=== PATIENT | female | born 1955 | race Caucasian/White ===

== ENCOUNTER → 2018-04-03 08:42 | Outpatient (CLI) | payer OTHER, SELFPAY ==
[2018-04-03 10:59] LABS: Anion Gap 6 (5-15); BUN 22 mg/dL (7-18); BUN/Creat Ratio 25.1 RATIO (10-20); Calcium,Total 8.9 mg/dL (8.5-10.1); Chloride 106 mmol/L (98-107); Creatinine, Serum 0.88 mg/dL (0.55-1.02); EST Glomerular Filtration Rate 69 mL/min (>60); Est Glom Filt Rate - Afr Amer 84 mL/min (>60); Glucose 90 mg/dL (74-106); Potassium 3.7 mmol/L (3.5-5.1); Sodium Level 141 mmol/L (136-145)
== END ==
PROVIDERS: Family Provider Family Medicine; PCP Family Medicine; Visit Provider Family Medicine
DX: I10 Essential (primary) hypertension (principal)
CPT/HCPCS: 36415; 80048

== ENCOUNTER → 2018-10-03 08:45 | Outpatient (CLI) | payer OTHER, SELFPAY ==
[2018-10-03 10:10] LABS: Absolute Lymphocyte Count 1.33 X10^3/ul (0.83-4.51); Absolute Neutrophil Count 2.6 X10^3/uL (2.0-7.7); Basophil# 0.04 X10^3/uL; Basophil% 0.9 % (0-1); Eosinophils% 2.3 % (0-5); Hemoglobin 13.9 g/dl (12.0-15.0); Lymphocyte # 1.33 X10^3/ul (4.0); Lymphocyte % 30.2 % (19-41); Mean Corp Hgb Conc 32.3 g/gl (32-36); Mean Corpuscular Hgb 29.2 pg (27.0-32.0); Mean Corpuscular Volume 90.3 fL (81-99); Mean Platelet Vol. 11.6 fl (6.2-12.0); Monocyte% 6.8 % (0-10); Neutrophil # 2.62 X10^3/uL (2.7-7.7); Neutrophil % 59.6 % (47-70); Platelet Count 178 K/mm3 (150-450); RBC Distribution Width CV 13.8 % (11.6-14.6); Red Blood Count 4.76 M/mm3 (4.2-5.4); White Blood Count 4.4 K/mm3 (4.4-11.0)
[2018-10-03 10:13] LABS: POSITIVE COUNT NO; POSITIVE DIFFERENTIAL NO; POSITIVE MORPHOLOGY NO
[2018-10-03 10:33] LABS: ALB/GLOB Ratio 1.3 RATIO (0.9-2.4); AST(SGOT) 27 U/L (15-37); Alanine Aminotransfer ALT/SGPT 35 U/L (13-56); Alkaline Phosphatase 72 U/L (45-117); Anion Gap 9 (5-15); BUN 24 mg/dL (7-18); BUN/Creat Ratio 26.4 RATIO (10-20); Calcium,Total 8.7 mg/dL (8.5-10.1); Chloride 105 mmol/L (98-107); Cholesterol 207 mg/dL (200); Creatinine, Serum 0.91 mg/dL (0.55-1.02); EST Glomerular Filtration Rate 67 mL/min (>60); Est Glom Filt Rate - Afr Amer 81 mL/min (>60); Glucose 87 mg/dL (74-106); High Density Lipoprotein 70 mg/dL; Potassium 4.4 mmol/L (3.5-5.1); Sodium Level 143 mmol/L (136-145); Triglycerides 74 mg/dL; Very Low Density Lipoprotein 15 mg/dL (5-40)
[2018-10-03 10:34] LABS: Vitamin D,25 Hydroxy 48.3 ng/mL (29.95-100.01)
--- OUTSIDE RECORDS SUMMARY | 2018-11-28 03:31 | XMS RPT_ITS ---
:1955 Author Organization OHIP Care Team Providers Name Role Phone Kriss Rai Attending Unavailable Kriss Rai Referring Unavailable Vivek Deras Primary Care Unavailable Vivek Deras Attending Unavailable Vivek Deras Primary Care Unavailable Vivek Deras Attending Unavailable Vivek Deras Primary Care Unavailable Vivek Deras Attending Unavailable PROBLEMS PROBLEMS DATE TYPE CONDITION / CODE ATTENDING STATUS SOURCE 10/21/2018 Unknown Z12.4 - Encounter Michelet Rai for screening for [facility] malignant neoplasm [facility] of cervix / Repository Z12.4(ICD-10) 10/21/2018 Unknown Z01.419 - Encounter Michelet Rai for gynecological [facility] (general) (routine) Repository without abnormal findings / Z01.419(ICD-10) 11/11/2017 Unknown I10 - Essential Vivek Deras Active Srikanth (primary) [facility] hypertension / Hospital I10(ICD-10) Repository PROCEDURES PROCEDURES No Procedure Records FoundRESULTS RESULTS CBC W/DIFF, AUTOMATED Collected: 10/03/2018 Status: F Source: SRIKANTH 8:47 AM [facility] REPOSITORY TYPE CODE TESTS RESULT OUT OF RANGE REFERENCE UNITS LAB L100.1000 4.4-11.0 K/mm3 Normal WBC 4.4 LAB L100.1200 4.2-5.4 M/mm3 Normal RBC 4.76 LAB L100.1300 12.0-15.0 g/dl Normal HGB 13.9 LAB L100.1400 37-47 % Normal HCT 43.0 LAB L100.1500 81-99 fL Normal MCV 90.3 LAB L100.1600 27.0-32.0 pg Normal MCH 29.2 LAB L100.1700 32-36 g/gl Normal MCHC 32.3 LAB L100.1810 11.6-14.6 % Normal RDW CV 13.8 LAB L100.1820 35.1-43.9 fl High RDW SD 46.0 LAB L100.1900 150-450 K/mm3 Normal PLT 178 LAB L100.2000 6.2-12.0 fl Normal MPV 11.6 LAB L100.2100 47-70 % Normal NEUT% 59.6 LAB L100.2200 19-41 % Normal LY% 30.2 LAB L100.2300 0-10 % Normal MONO% 6.8 LAB L100.2400 0-5 % Normal EO% 2.3 LAB L100.2500 0-1 % Normal BASO% 0.9 LAB L100.2550 0.0-0.9 % Normal IM GRAN % 0.200 Result Comment: IG% - Immature Granulocytes (promyelocytes, myelocytes and metamyelocytes) > 1% indicates that a LEFT SHIFT is Present. LAB L100.2620 2.0-7.7 X10 3/uL Normal Absolute Neut 2.6 LAB L100.2720 0.83-4.51 X10 3/ul Normal Absolute Lymph 1.33 Performed By: #### L100.0100, L500.4050, L500.4100, L506.1000 #### [facility] [address] [place], [address] COMPREHENSIVE METABOLIC Collected: 10/03/2018 Status: F Source: SRIKANTH [place] 8:47 AM [facility] REPOSITORY TYPE CODE TESTS RESULT OUT OF RANGE REFERENCE UNITS LAB L501.0100 74-106 mg/dL Normal GLU 87 Result Comment: Please note revised GLUCOSE reference range effective 2017. LAB L501.1000 7-18 mg/dL High BUN 24 LAB L501.1100 0.55-1.02 mg/dL Normal CREAT,SERUM 0.91 Result Comment: The validity of the calculated GFR AND GFRAA in patients over 70 years has not been determined. Clinical correlation is essential. LAB L501.1110 >60 mL/min Normal EST GFR 67 Result Comment: Non- GFR Calc LAB L501.1115 >60 mL/min Normal EST GFR - AA 81 Result Comment: GFR Calc LAB L501.1300 10-20 RATIO High BUN/CRE 26.4 LAB L501.1500 6.4-8.2 g/dL T Normal PROT 7.0 LAB L501.1800 3.2-5.0 g/dL Normal ALB 4.0 LAB L501.1950 2.2-4.2 g/dL Normal GLOB 3.0 LAB L501.2000 0.9-2.4 RATIO Normal A/G 1.3 LAB L501.2200 8.5-10.1 mg/dL CA Normal 8.7 LAB L501.4100 15-37 U/L Normal AST 27 LAB L501.4305 45-117 U/L Normal ALK P 72 LAB L501.4405 13-56 U/L Normal ALT 35 LAB L501.4600 0.20-1.00 mg/dL T Normal BILI 0.60 LAB L501.5300 136-145 mmol/L NA Normal 143 LAB L501.5600 3.5-5.1 mmol/L K Normal 4.4 LAB L501.5900 98-107 mmol/L CL Normal 105 LAB L501.6100 21.0-32.0 mmol/L Normal CO2 29.0 LAB L501.6200 5-15 Normal GAP 9 Performed By: #### L100.0100, L500.4050, L500.4100, L506.1000 #### [facility] [address] [place], [address] LIPID PROFILE Collected: 10/03/2018 Status: F Source: SRIKANTH 8:47 AM [facility] REPOSITORY TYPE CODE TESTS RESULT OUT OF RANGE REFERENCE UNITS LAB L501.4900 200 mg/dL High CHOL 207 Result Comment: <200 mg/dL Desirable 200-240 mg/dL Borderline >240 mg/dL High Risk LAB L501.5000 mg/dL Normal TRIG 74 Result Comment: The drugs N-Acetylcysteine and Metamizole may falsely depress this assay. Serum Triglycerides Reference Interval Normal <150 mg/dL Borderline high 150 - 199 mg/dL High 200 - 499 mg/dL Very High > or = 500 mg/dL LAB L501.6400 mg/dL Normal HDL 70 Result Comment: The drugs N-Acetylcysteine and Metamizole may falsely depress this assay. Reference Range HDL <40 mg/dL Low HDL Cholesterol HDL >or= 60 mg/dL High HDL Cholesterol LAB L501.6500 0-130 mg/dL Normal LDL 122 LAB L501.6600 5-40 mg/dL Normal VLDL 15 Performed By: #### L100.0100, L500.4050, L500.4100, L506.1000 #### [facility] [address] [place], [address] VITAMIN D,25 HYDROXY Collected: 10/03/2018 Status: F Source: SRIKANTH 8:47 AM [facility] REPOSITORY TYPE CODE TESTS RESULT OUT OF RANGE REFERENCE UNITS LAB L506.1000 29.95-100.01 ng/mL Normal Vitamin D 48.3 25-OH Result Comment: Vitamin D 25(OH) Status Range Deficiency <20 ng/mL (50nmol/L) Insuffciency 20 - 30 ng/mL (50 - 75 nmol/L) Sufficiency 30 - 100 ng/mL (75 - 250 nmol/L) Toxicity >100 ng/mL (>250 nmol/L) Performed By: #### L100.0100, L500.4050, L500.4100, L506.1000 #### [facility] [address] [place], [address] BASIC METABOLIC Collected: 04/03/2018 Status: F Source: SRIKANTH PROFILE (BMP) 8:43 AM [facility] REPOSITORY Order Comment: Order Date: 04/01/18 Order Info: 0667-1 - BMP TYPE CODE TESTS RESULT OUT OF RANGE REFERENCE UNITS LAB L501.0100 74-106 mg/dL Normal GLU 90 Result Comment: Please note revised GLUCOSE reference range effective 2017. LAB L501.1000 7-18 mg/dL High BUN 22 LAB L501.1100 0.55-1.02 mg/dL Normal CREAT,SERUM 0.88 Result Comment: The validity of the calculated GFR AND GFRAA in patients over 70 years has not been determined. Clinical correlation is essential. LAB L501.1110 >60 mL/min Normal EST GFR 69 Result Comment: Non- GFR Calc LAB L501.1115 >60 mL/min Normal EST GFR - AA 84 Result Comment: GFR Calc LAB L501.1300 10-20 RATIO High BUN/CRE 25.1 LAB L501.2200 8.5-10.1 mg/dL CA Normal 8.9 LAB L501.5300 136-145 mmol/L NA Normal 141 LAB L501.5600 3.5-5.1 mmol/L K Normal 3.7 LAB L501.5900 98-107 mmol/L CL Normal 106 LAB L501.6100 21.0-32.0 mmol/L Normal CO2 29.0 LAB L501.6200 5-15 Normal GAP 6 Performed By: #### L500.2500 #### [facility] [address] [place], [place] [address]all [facility]. [place], [place], [address] CBC W/DIFF, AUTOMATED Collected: 11/08/2017 Status: F Source: SRIKANTH 3:07 PM [facility] REPOSITORY TYPE CODE TESTS RESULT OUT OF RANGE REFERENCE UNITS LAB L100.1000 4.4-11.0 K/mm3 Normal WBC 4.4 LAB L100.1200 4.2-5.4 M/mm3 Normal RBC 4.64 LAB L100.1300 12.0-15.0 g/dl Normal HGB 13.8 LAB L100.1400 37-47 % Normal HCT 43.0 LAB L100.1500 81-99 fL Normal MCV 92.7 LAB L100.1600 27.0-32.0 pg Normal MCH 29.7 LAB L100.1700 32-36 g/gl Normal MCHC 32.1 LAB L100.1810 11.6-14.6 % Normal RDW CV 13.3 LAB L100.1820 35.1-43.9 fl High RDW SD 44.9 LAB L100.1900 150-450 K/mm3 Normal PLT 161 LAB L100.2000 6.2-12.0 fl High MPV 12.6 LAB L100.2100 47-70 % Normal NEUT% 53.4 LAB L100.2200 19-41 % Normal LY% 32.6 LAB L100.2300 0-10 % High MONO% 11.0 LAB L100.2400 0-5 % Normal EO% 2.3 LAB L100.2500 0-1 % Normal BASO% 0.5 LAB L100.2550 0.0-0.9 % Normal IM GRAN % 0.200 Result Comment: IG% - Immature Granulocytes (promyelocytes, myelocytes and metamyelocytes) > 1% indicates that a LEFT SHIFT is Present. LAB L100.2620 2.0-7.7 X10 3/uL Normal Absolute Neut 2.3 LAB L100.2720 0.83-4.51 X10 3/ul Normal Absolute Lymph 1.43 Performed By: #### L100.0100 #### [facility] [address] [place], [place], [address] BASIC METABOLIC Collected: 11/08/2017 Status: F Source: [place] PROFILE ([facility]) 3:07 PM [facility] REPOSITORY TYPE CODE TESTS RESULT OUT OF RANGE REFERENCE UNITS LAB L501.0100 70-110 mg/dL Normal GLU 93 LAB L501.1000 7-18 mg/dL High BUN 21 LAB L501.1100 0.55-1.02 mg/dL Normal 0.90 CREAT,SERUM Result Comment: The validity of the calculated GFR AND GFRAA in patients over 70 years has not been determined. Clinical correlation is essential. LAB L501.1110 >60 mL/min Normal EST GFR 68 Result Comment: Non- GFR Calc LAB L501.1115 >60 mL/min Normal EST GFR - AA 82 Result Comment: GFR Calc LAB L501.1300 10-20 RATIO High BUN/CRE 23.3 LAB L501.2200 8.5-10.1 mg/dL CA Normal 9.2 LAB L501.5300 136-145 mmol/L NA Normal 145 LAB L501.5600 3.5-5.1 mmol/L K Normal 3.8 LAB L501.5900 98-107 mmol/L High CL 109 LAB L501.6100 21.0-32.0 mmol/L Normal CO2 28.0 LAB L501.6200 5-15 Normal GAP 8 Performed By: #### L500.2500, L500.4100 #### [facility] [address] [place], [address] LIPID PROFILE Collected: 11/08/2017 Status: F Source: [place] 3:07 PM [facility] REPOSITORY TYPE CODE TESTS RESULT OUT OF RANGE REFERENCE UNITS LAB L501.4900 200 mg/dL Normal CHOL 173 Result Comment: <200 mg/dL Desirable 200-240 mg/dL Borderline >240 mg/dL High Risk LAB L501.5000 mg/dL Normal TRIG 143 Result Comment: The drugs N-Acetylcysteine and Metamizole may falsely depress this assay. Serum Triglycerides Reference Interval Normal <150 mg/dL Borderline high 150 - 199 mg/dL High 200 - 499 mg/dL Very High > or = 500 mg/dL LAB L501.6400 mg/dL Normal HDL 54 Result Comment: The drugs N-Acetylcysteine and Metamizole may falsely depress this assay. Reference Range HDL <40 mg/dL Low HDL Cholesterol HDL >or= 60 mg/dL High HDL Cholesterol LAB L501.6500 0-130 mg/dL Normal LDL 90 LAB L501.6600 5-40 mg/dL Normal VLDL 29 Performed By: #### L500.2500, L500.4100 #### [facility] [address] [place], [place], [address] ALLERGIES ALLERGIES DATE TYPE / CODE NAME / CODE REACTION SEVERITY SOURCE 04/05/2014 Drug No Known Unknown [facility] Allergy/4160 Allergies/F00 [facility] [address](SNOMED 1247289(RXNOR Repository CT) M) ENCOUNTERS ENCOUNTERS ADMIT/DISCHARGE ACCOUNT ADMITTING ENCOUNTER LOCATION SOURCE NUMBER CLASS 10/21/2018 [id number] Ambulatory [address] ing:LABSPEC Repository 10/03/2018 [id number] Ambulatory Srikanth Srikanth 6 [facility] ing:MFPLAB Repository 04/03/2018 [id number] Ambulatory Srikanth [place] 7 [facility] ing:MFPLAB Repository 11/08/2017 [id number] Ambulatory Srikanth Srikanth 4 [facility] ing:MFPLAB Repository PAYERS PAYERS ENCOUNTER GUARANTOR PAYER SUBSCRIBER SOURCE 10/21/2018 JOSE S [id number] Primary JOSE S HUFFDOB: Srikanth E LETY [id number] Number: [facility] [address]Ljw: [id number] Repository Date:[id number] [address] () [address] [place] [address]YD: 10/21/2018 Secondary NOT GIVENUNK [place] Insurance:SELF PAY [facility] Number: Effective Repository Date:2018-10-21 10/03/2018 [id number] Jose HuffDOB: [place] [address] Insurance:[facility] [id number] Number: [facility] [id number]: [phone]) [id number] Repository [phone] () Date:[id number] [address] [place] [address]GB: 10/03/2018 Secondary NOT GIVENUNK Srikanth Insurance:SELF PAY [facility] Number: Effective Repository Date:2018-10-03 04/03/2018 Jose [id number] Jose HuffDOB: Srikanth [address] Way[address] Insurance:[facility] [id number] [facility] Number: [facility] [address]Lac: [phone]) [id number] Repository [phone] (HP) Date:5437-80-78AO [address] [place] [address]AB: 04/03/2018 Secondary NOT GIVENUNK Srikanth Insurance:SELF PAY [facility]: Effective Repository Date:2018-04-03 11/08/2017 [id number] Jose ChenB: Srikanth Don [facility] [id number] [facility] Number: [facility] [id number]: [phone]) [id number] Repository [phone] () Date:[id number] [address] [address]GO: 11/08/2017 Secondary NOT GIVENUNK [place] Insurance:SELF PAY [facility] Number: Effective Repository Date:2017-11-08
== END ==
PROVIDERS: Family Provider Family Medicine; PCP Family Medicine; Visit Provider Family Medicine
DX: I10 Essential (primary) hypertension (principal); E78.5 Hyperlipidemia, unspecified; E55.9 Vitamin D deficiency, unspecified
CPT/HCPCS: 36415; 80053; 80061; 82306; 85025

== ENCOUNTER → 2018-10-21 12:40 | Outpatient (CLI) | payer OTHER, SELFPAY ==
[2014-04-05 09:13] VITALS: BMI 35.2
[2018-10-23 15:19] LABS: HPV Reflexed? NOT INDICATED
--- OUTSIDE RECORDS SUMMARY | 2019-01-22 22:45 | XMS RPT_ITS ---
:1955 Author Organization OHIP Care Team Providers Name Role Phone Kriss Rai Attending Unavailable Kriss Rai Referring Unavailable Vivek Deras Primary Care Unavailable Vivek Deras Attending Unavailable Vivek Deras Primary Care Unavailable Vivek Deras Attending Unavailable Vivek Deras Primary Care Unavailable PROBLEMS PROBLEMS DATE TYPE CONDITION / CODE ATTENDING STATUS SOURCE 10/21/2018 Unknown Z12.4 - Encounter Michelet Rai for screening for [facility] malignant neoplasm [facility] of cervix / Repository Z12.4(ICD-10) 10/21/2018 Unknown Z01.419 - Encounter Michelet Rai for gynecological [facility] (general) (routine) Repository without abnormal findings / Z01.419(ICD-10) PROCEDURES PROCEDURES No Procedure Records FoundRESULTS RESULTS PAP I-G W/RFX HRHPV Collected: 10/21/2018 Status: F Source: SRIKANTH 8:30 AM [facility] REPOSITORY Order Comment: CYTOLOGY INFORMATION: - CLINICAL INFORMATION: POSTMENOPAUSAL - DATE LMP/MENOPAUSE: MENOPAUSE - COLLECTION VIAL: Thin Prep Vial - LEGAL OFFICE ADMINISTRATOR SOURCE: CERVICAL/VAGINAL - COLLECTION TECHNIQUE: BRUSH/SPATULA Specimen Comment: [id number] Specimen Comment: Source.............Cervix;Vagina Specimen Comment: Other..............Post Menopausal Specimen Comment: No. of containers..01 ThinPrep Vial TYPE CODE TESTS RESULT OUT OF RANGE REFERENCE UNITS LAB L7400.0800 . Normal DIAGN Comment Result Comment: NEGATIVE FOR INTRAEPITHELIAL LESION AND MALIGNANCY. LAB L7400.0900 . Normal ADEQ Comment Result Comment: Satisfactory for evaluation. Endocervical component may not be distinguished in cases of atrophy. LAB L7400.1400 . Normal PERFORM Comment Result Comment: [facility] ([facility]) LAB L7400.2575 . Normal TEST METHOD Comment Result Comment: This liquid based ThinPrep(R) pap test was screened with the use of an image guided system. LAB L7400.2600 . Normal . COMM LAB L7400.2700 . Normal PAPSMR Comment Result Comment: The Pap smear is a screening test designed to aid in the detection of premalignant and malignant conditions of the uterine cervix. It is not a diagnostic procedure and should not be used as the sole means of detecting cervical cancer. Both false-positive and false-negative reports do occur. LAB L7400.2800 . Normal HPV RFLX Comment Result Comment: The HPV DNA reflex criteria were not met with this specimen result therefore, no HPV testing was performed. Performed at: [facility] [address] [id number] Light Oil Operator: Heather Archer MD, Phone: [phone] Performed By: #### L7400.0350 #### [facility] (refer to report for specific site) refer to report for address and phone number CBC W/DIFF, AUTOMATED Collected: 10/03/2018 Status: F Source: [place] 8:47 AM [facility] [place] CODE TESTS RESULT OUT OF [...] By: #### L100.0100, L500.4050, L500.4100, L506.1000 #### [facility] [address] [place], [address] COMPREHENSIVE METABOLIC Collected: 10/03/2018 Status: F Source: [facility] 8:47 AM [facility] [place] TYPE CODE TESTS RESULT OUT OF [...] By: #### L100.0100, L500.4050, L500.4100, L506.1000 #### [facility] [address] [place], [address] LIPID PROFILE Collected: 10/03/2018 Status: F Source: [place] 8:47 AM [facility] [place] TYPE CODE TESTS RESULT OUT OF [...] By: #### L100.0100, L500.4050, L500.4100, L506.1000 #### [facility] [address] [place], [address] VITAMIN D,25 HYDROXY Collected: 10/03/2018 Status: F Source: [place] 8:47 AM [facility] [place] TYPE CODE TESTS RESULT OUT OF RANGE REFERENCE UNITS LAB L506.1000 29.95-100.01 ng/mL Normal Vitamin D 48.3 25-OH Result Comment: Vitamin D 25(OH) Status Range Deficiency <20 ng/mL (50nmol/L) Insuffciency 20 - 30 ng/mL (50 - 75 nmol/L) Sufficiency 30 - 100 ng/mL (75 - 250 nmol/L) Toxicity >100 ng/mL (>250 nmol/L) Performed By: #### L100.0100, L500.4050, L500.4100, L506.1000 #### [facility] [address] [place], [address] BASIC METABOLIC Collected: 04/03/2018 Status: F Source: [place] PROFILE (BMP) 8:43 AM [facility] [place] Order Comment: Order Date: 04/01/18 Order [...] GAP 6 Performed By: #### L500.2500 #### [facility] [address] [place], [address] ALLERGIES ALLERGIES DATE TYPE / CODE NAME / CODE REACTION SEVERITY SOURCE 04/05/2014 Drug No Known Unknown [facility] Allergy/4160 Allergies/F00 [facility] [address](SNOMED 1337020(RXNOR Repository CT) M) ENCOUNTERS ENCOUNTERS ADMIT/DISCHARGE ACCOUNT ADMITTING ENCOUNTER LOCATION SOURCE NUMBER CLASS 10/21/[id number] ing:LABSPEC Repository 10/03/[id number] ing:MFPLAB Repository 04/03/[id number] ing:MFPLAB Repository PAYERS PAYERS ENCOUNTER GUARANTOR PAYER SUBSCRIBER SOURCE 10/21/2018 JOSE S [id number] Primary JOSE S HUFFDOB: [place] E LETY Insurance:[employer] [id number] [address]Uvp: [id number] Repository Date:[id number], [place] [address]ZW: 10/21/2018 Secondary NOT GIVENUNK Srikanth Insurance:SELF PAY [facility] Number: Effective Repository Date:2018-10-21 10/03/2018 [facility] [id number] Jose HumelvaDOB: [place] Lety Don Insurance:[facility] [id number] CAREPolicy Number: Hospital [address]Mye: 330 [id number] Repository [phone] (HP) Date:2464-05-45AP [address] [address]NO: 10/03/2018 Secondary NOT GIVENUNK Srikanth Insurance:SELF PAY [facility] Number: Effective Repository Date:2018-10-03 04/03/2018 [facility] [id number] Jose HarmanDOB: Srikanth Lety Don Insurance:[facility] [id number] [place] CAREPolicy Number: Hospital [id number]: 330 [id number] Repository [phone] (HP) Date:0126-10-83XS [address] [address]TW: 04/03/2018 Secondary NOT GIVENUNK [place] Insurance:SELF PAY [facility] Number: Effective Repository Date:2018-04-03
== END ==
PROVIDERS: Family Provider Family Medicine; PCP Family Medicine; Referring Provider Nurse Practitioner Adult Health; Visit Provider Nurse Practitioner Adult Health
DX: Z01.419 Encounter for gynecological examination (general) (routine) without abnormal findings (principal)
CPT/HCPCS: 88175; G0145

== ENCOUNTER → 2018-12-23 09:24 | Outpatient (CLI) | payer BC, SELFPAY ==
--- NOTE | 2018-12-23 09:28 | BI_ITS ---
MAMMOGRAPHY - BILATERAL SCREENING REASON FOR EXAM: Female, 63 years old. Routine annual screening examination. PERTINENT HISTORY: Sister with breast cancer. TECHNIQUE: Digital bilateral breast alida (3D mammographic acquisition) in the CC and MLO projections. 2-D mediolateral oblique (MLO) and craniocaudad (CC) views of both breasts were obtained. CAD: Full Field Digital Mammography with Computer Added Detection was performed. COMPARISON: Comparison is made with prior examination dated May 05, 2014. FINDINGS: Breast Composition: There are scattered areas of fibroglandular density. There is a 6.7 mm x 8.3 mm well-defined nodule in the upper lateral portion of the right breast. This is essentially unchanged and may represent a small cyst. Prior ultrasound demonstrated 3 small cysts at that site. Stable small bilateral axillary lymph nodes. No other significant abnormalities are identified. There has been no significant change since the prior study. BI/SCREENING MAMM (CAD), BILAT IMPRESSION: Stable bilateral screening mammogram. Yearly follow-up mammogram recommended. (A) ASSESSMENT CATEGORY: BIRADS Category 2: Benign. A letter regarding these results will be sent to the patient by the facility within 30 days. Approximately 10% of breast cancers are not detected by mammography. A normal mammogram should not delay biopsy of a clinically suspicious abnormality. [id number] Electronically Signed: Jax Franco MD at 10:58 EST , Service support ,
--- NOTE | 2018-12-23 09:30 | BD_ITS ---
STUDY: DUAL ENERGY X-RAY ABSORPTIOMETRY / DXA REASON FOR EXAM: Female, 63 years old. The patient is postmenopausal. Loss of height. TECHNIQUE: Bone Mineral Density (BMD) measurements of lumbar spine and bilateral hips were obtained. COMPARISON: Comparison is made with prior study dated May 12, 2014. FINDINGS: Lumbar Spine (L1-L4): g/cm2 (1.049) / T-score (-1.3) / Z-score (0.1) Findings are suggestive of osteopenia with a low fracture risk. Left Femur Total: g/cm2 (0.919) / T-score (-0.7) / Z-score (0.4) Left Femoral Neck: g/cm2 (0.823) / T-score (-1.5) / Z-score (-0.2) Right Femur Total: g/cm2 (0.803) / T-score (-1.6) / Z-score (-0.6) Right Femoral Neck: g/cm2 (0.844) / T-score (-1.4) / Z-score (0.0) The T-Scores on the most recent prior examination were: Lumbar Spine (L1-L4): There has been worsening of bone density since the previous examination. Left Femur Total: which represents a worsening of 7.3%. Right Femur Total: which represents a worsening of 15.1%. BD/Dexa Bone Density Study IMPRESSION: The patient is considered osteopenic as outlined below according to World Isaiah Organization (WHO) criteria with a moderate fracture risk. There has been worsening of bone density since the previous examination. Reference Information: The T-score is the number of standard deviations above or below the standard which is normal for young adults at their peak bone mineral density. The World Health Organization (WHO) interprets the T-scores as follows: Above -1 Normal bone density Between -1 and -2.5 Osteopenia Equal to / or below -2.5 Osteoporosis As a practical clinical guideline, osteopenia may be graded as follows: Mild -1 through -1.5 Moderate -1.6 through -2.0 Severe -2.1 through -2.4 The Z-score is the number of standard deviations above or below age-matched controls. A Z-score of less than -1.5 would be considered abnormal. References: 1. NIH Osteoporosis and Related Bone Diseases http://www.osteo.org 2. International Society for Clinical Densitometry http://www.iscd.org 3. National Osteoporosis Foundation http://www.nof.org Electronically Signed: Jax Franco MD at 13:55 EST , Service support ,
== END ==
PROVIDERS: Family Provider Family Medicine; PCP Family Medicine; Referring Provider Nurse Practitioner Adult Health; Visit Provider Nurse Practitioner Adult Health
DX: Z78.0 Asymptomatic menopausal state (principal); Z12.31 Encounter for screening mammogram for malignant neoplasm of breast; Z80.3 Family history of malignant neoplasm of breast
CPT/HCPCS: 77063; 77067; 77080

== ENCOUNTER → 2020-08-10 09:41 | Outpatient (CLI) | payer BC, SELFPAY ==
[2014-04-05 09:13] VITALS: BMI 35.2
[2020-08-10 12:46] LABS: Anion Gap 3 (5-15); BUN 18 mg/dL (7-18); Calcium,Total 8.9 mg/dL (8.5-10.1); Chloride 105 mmol/L (98-107); Cholesterol 207 mg/dL (200); EST Glomerular Filtration Rate 67 mL/min (>60); Est Glom Filt Rate - Afr Amer 81 mL/min (>60); Glucose 102 mg/dL (74-106); High Density Lipoprotein 64 mg/dL; Potassium 3.8 mmol/L (3.5-5.1); Sodium Level 139 mmol/L (136-145); Triglycerides 120 mg/dL; Very Low Density Lipoprotein 24 mg/dL (5-40)
== END ==
PROVIDERS: PCP Family Medicine; Referring Provider Family Medicine; Visit Provider Family Medicine
DX: E78.5 Hyperlipidemia, unspecified (principal)
CPT/HCPCS: 36415; 80048; 80061

== ENCOUNTER → 2021-08-10 09:09 | Outpatient (CLI) | payer MEDICARE, SELFPAY ==
[2021-08-10 10:55] LABS: Anion Gap 7 (5-15); BUN 22 mg/dL (7-18); BUN/Creat Ratio 22.1 RATIO (10-20); Calcium,Total 9.2 mg/dL (8.5-10.1); Chloride 105 mmol/L (98-107); Cholesterol 231 mg/dL (200); Creatinine, Serum 0.99 mg/dL (0.55-1.02); EST Glomerular Filtration Rate 60 mL/min (>60); Est Glom Filt Rate - Afr Amer 72 mL/min (>60); Glucose 106 mg/dL (74-106); High Density Lipoprotein 46 mg/dL; Potassium 4.1 mmol/L (3.5-5.1); Sodium Level 141 mmol/L (136-145); Triglycerides 227 mg/dL; Very Low Density Lipoprotein 45 mg/dL (5-40)
== END ==
PROVIDERS: PCP Family Medicine; Referring Provider Family Medicine; Visit Provider Family Medicine
DX: I10 Essential (primary) hypertension (principal)
CPT/HCPCS: 36415; 80048; 80061

== ENCOUNTER 2022-02-07 08:40 | Outpatient (CLI) | payer MEDICARE, SELFPAY ==
[2022-02-07 10:22] LABS: Anion Gap 5 (5-15); BUN 29 mg/dL (7-18); BUN/Creat Ratio 20.9 RATIO (10-20); Calcium,Total 9.4 mg/dL (8.5-10.1); Chloride 105 mmol/L (98-107); Cholesterol 189 mg/dL (200); Creatinine, Serum 1.39 mg/dL (0.55-1.02); EST Glomerular Filtration Rate 40 mL/min (>60); Est Glom Filt Rate - Afr Amer 49 mL/min (>60); Glucose 122 mg/dL (74-106); High Density Lipoprotein 42 mg/dL; Potassium 4.1 mmol/L (3.5-5.1); Sodium Level 138 mmol/L (136-145); Triglycerides 124 mg/dL; Very Low Density Lipoprotein 25 mg/dL (5-40)
== END 2022-02-07 23:59 | disposition home or self-care (01) ==
LOC: MFPLAB 08:42
PROVIDERS: PCP Family Medicine; Referring Provider Family Medicine; Visit Provider Family Medicine
DX: I10 Essential (primary) hypertension (principal)
CPT/HCPCS: 36415; 80048; 80061

== ENCOUNTER → 2022-08-06 | Outpatient (CLI) | payer MEDICARE, SELFPAY ==
[2022-08-06 11:07] LABS: Anion Gap 8 (5-15); BUN 30 mg/dL (7-18); BUN/Creat Ratio 23.1 RATIO (10-20); Calcium,Total 9.5 mg/dL (8.5-10.1); Chloride 105 mmol/L (98-107); Cholesterol 204 mg/dL (200); EST Glomerular Filtration Rate 44 mL/min (>60); Est Glom Filt Rate - Afr Amer 53 mL/min (>60); Glucose 109 mg/dL (74-106); High Density Lipoprotein 45 mg/dL; Potassium 3.9 mmol/L (3.5-5.1); Sodium Level 140 mmol/L (136-145); Triglycerides 203 mg/dL; Very Low Density Lipoprotein 41 mg/dL (5-40)
== END | disposition home or self-care (01) ==
LOC: MFPLAB 08:32
PROVIDERS: PCP Family Medicine; Visit Provider Family Medicine
DX: I10 Essential (primary) hypertension (principal)
CPT/HCPCS: 36415; 80048; 80061

== ENCOUNTER → 2023-02-04 | Outpatient (CLI) | payer MEDICARE, SELFPAY ==
[2023-02-04 12:15] LABS: Anion Gap 6 (5-15); BUN 39 mg/dL (7-18); Calcium,Total 9.7 mg/dL (8.5-10.1); Chloride 102 mmol/L (98-107); Cholesterol 204 mg/dL (200); EST Glomerular Filtration Rate 37 mL/min (>60); Est Glom Filt Rate - Afr Amer 45 mL/min (>60); Glucose 114 mg/dL (74-106); High Density Lipoprotein 50 mg/dL; Potassium 3.7 mmol/L (3.5-5.1); Sodium Level 136 mmol/L (136-145); Triglycerides 207 mg/dL; Very Low Density Lipoprotein 41 mg/dL (5-40)
== END | disposition home or self-care (01) ==
LOC: MFPLAB 08:25
PROVIDERS: PCP Family Medicine; Visit Provider Family Medicine
DX: I10 Essential (primary) hypertension (principal)
CPT/HCPCS: 36415; 80048; 80061

== ENCOUNTER → 2023-08-05 | Outpatient (CLI) | payer MEDICARE, SELFPAY ==
[2023-08-05 10:23] LABS: Anion Gap 6 (5-15); BUN 31 mg/dL (7-18); BUN/Creat Ratio 24.6 RATIO (10-20); Calcium,Total 9.6 mg/dL (8.5-10.1); Chloride 102 mmol/L (98-107); Cholesterol 205 mg/dL (200); Creatinine, Serum 1.26 mg/dL (0.55-1.02); EST Glomerular Filtration Rate 45 mL/min (>60); Est Glom Filt Rate - Afr Amer 54 mL/min (>60); Glucose 122 mg/dL (74-106); High Density Lipoprotein 53 mg/dL; Potassium 3.7 mmol/L (3.5-5.1); Sodium Level 137 mmol/L (136-145); Triglycerides 162 mg/dL; Very Low Density Lipoprotein 32 mg/dL (5-40)
== END | disposition home or self-care (01) ==
LOC: MFPLAB 08:30
PROVIDERS: PCP Family Medicine; Visit Provider Family Medicine
DX: I10 Essential (primary) hypertension (principal)
CPT/HCPCS: 36415; 80048; 80061

== ENCOUNTER → 2023-09-05 | Outpatient (CLI) | payer MEDICARE, SELFPAY ==
--- NOTE | 2023-09-05 10:37 | BI_ITS ---
MAMMOGRAPHY - BILATERAL SCREENING REASON FOR EXAM: Female, 68 years old. Routine annual screening examination. PERTINENT HISTORY: Sister with breast cancer. TECHNIQUE: Digital bilateral breast mao (3D mammographic acquisition) in the CC and MLO projections. 2-D mediolateral oblique (MLO) and craniocaudad (CC) views of both breasts were obtained. CAD: Full Field Digital Mammography with Computer Added Detection was performed. COMPARISON: Comparison is made with prior examination dated December 23, 2018 and May 12, 2014. FINDINGS: Breast Composition: There are scattered areas of fibroglandular density. There are no dominant masses or suspicious calcifications. Slight decrease in size of the well-defined nodule in the upper lateral portion of the right breast. It presently measures 4 mm. Stable small benign-appearing bilateral axillary lymph nodes. No other significant abnormalities are identified. There has been no significant change since the prior study. BI/SCRN MAMM (CAD)W/MAO BILAT IMPRESSION: Stable bilateral screening mammogram. Yearly follow-up mammogram recommended. (A) ASSESSMENT CATEGORY: BIRADS Category 2: Benign. A letter regarding these results will be sent to the patient by the facility within 30 days. Approximately 10% of breast cancers are not detected by mammography. A normal mammogram should not delay biopsy of a clinically suspicious abnormality. [id number] Electronically Signed: Jax Franco MD at 12:31 EDT ,
--- NOTE | 2023-09-05 10:53 | BD_ITS ---
STUDY: DUAL ENERGY X-RAY ABSORPTIOMETRY / DXA REASON FOR EXAM: Female, 68 years old. Z780 TECHNIQUE: Bone Mineral Density (BMD) measurements of lumbar spine and bilateral hips were obtained. COMPARISON: Comparison is made with prior study dated December 23, 2018. FINDINGS: Lumbar Spine (L1-L4): g/cm2 (0.873) / T-score (-1.7) / Z-score (0.3) Findings are suggestive of osteopenia with a moderate fracture risk. Left Femur Total: g/cm2 (0.833) / T-score (-0.9) / Z-score (0.5) Left Femoral Neck: g/cm2 (0.678) / T-score (-1.5) / Z-score (0.1) Right Femur Total: g/cm2 (0.805) / T-score (-1.1) / Z-score (0.2) Right Femoral Neck: g/cm2 (0.640) / T-score (-1.9) / Z-score (-0.2) The T-Scores on the most recent prior examination were: Lumbar Spine (L1-L4): There has been worsening of bone density since the previous examination. Left Femur Total: which represents a worsening of 2.6%. Right Femur Total: which represents an improvement of 8.4%. BD/Dexa Bone Density Study IMPRESSION: The patient is considered osteopenic as outlined below according to World Isaiah Organization (WHO) criteria with a moderate fracture risk. There has been worsening of bone density since the previous examination. Reference Information: The T-score is the number of standard deviations above or below the standard which is normal for young adults at their peak bone mineral density. The World Health Organization (WHO) interprets the T-scores as follows: Above -1 Normal bone density Between -1 and -2.5 Osteopenia Equal to / or below -2.5 Osteoporosis As a practical clinical guideline, osteopenia may be graded as follows: Mild -1 through -1.5 Moderate -1.6 through -2.0 Severe -2.1 through -2.4 The Z-score is the number of standard deviations above or below age-matched controls. A Z-score of less than -1.5 would be considered abnormal. References: 1. NIH Osteoporosis and Related Bone Diseases www osteo.org 2. International Society for Clinical Densitometry www iscd.org 3. National Osteoporosis Foundation www nof.org Electronically Signed: Jax Franco MD at 13:24 EDT ,
== END | disposition home or self-care (01) ==
LOC: OPBI 10:35
PROVIDERS: PCP Family Medicine; Referring Provider Family Medicine; Visit Provider Family Medicine
DX: Z12.31 Encounter for screening mammogram for malignant neoplasm of breast (principal); Z78.0 Asymptomatic menopausal state
CPT/HCPCS: 77063; 77067; 77080

== ENCOUNTER → 2024-10-06 | Outpatient (CLI) | payer MEDICARE, SELFPAY ==
[2024-10-06 10:07] LABS: Anion Gap 4 (5-15); BUN 37 mg/dL (7-18); BUN/Creat Ratio 27.8 RATIO (10-20); Calcium,Total 9.7 mg/dL (8.5-10.1); Chloride 104 mmol/L (98-107); Cholesterol 205 mg/dL (200); Creatinine, Serum 1.33 mg/dL (0.55-1.02); EST Glomerular Filtration Rate 42 mL/min (>60); Est Glom Filt Rate - Afr Amer 51 mL/min (>60); Glucose 108 mg/dL (74-106); High Density Lipoprotein 52 mg/dL; Potassium 3.8 mmol/L (3.5-5.1); Sodium Level 136 mmol/L (136-145); Triglycerides 183 mg/dL; Very Low Density Lipoprotein 37 mg/dL (5-40)
[2024-10-06 10:41] LABS: Hemoglobin A1c 5.8 % (3.8-5.6)
== END | disposition home or self-care (01) ==
LOC: MFPLAB 08:09
PROVIDERS: PCP Family Medicine; Referring Provider Family Medicine; Visit Provider Family Medicine
DX: E78.5 Hyperlipidemia, unspecified (principal)
CPT/HCPCS: 36415; 80048; 80061; 83036

== ENCOUNTER → 2024-12-24 | Outpatient (CLI) | payer MEDICARE, SELFPAY ==
--- NOTE | 2024-12-24 10:41 | BI_ITS ---
PROCEDURE: SCRN MAMM (CAD)W/MAO BILAT REASON FOR EXAM: F, Age 69 y/o , , presents for annual screening mammogram. Family history of breast cancer in her sister at age 40. TECHNIQUE: Bilateral screening digital breast tomosynthesis with 2D and 3D images. Computer aided detection. COMPARISON: 09/05/2023, 12/23/2018 FINDINGS: There are scattered areas of fibroglandular density. No suspicious masses, areas of developing architectural distortion, or suspicious calcifications. BI/SCRN MAMM (CAD)W/MAO BILAT IMPRESSION: There is no mammographic evidence of malignancy in either breast. . BI-RADS 1: NEGATIVE. RECOMMEND ANNUAL MAMMOGRAPHIC SCREENING. Follow-up code: Routine Follow-up The patient will be notified of the results by letter. Reading Location: [facility]
== END | disposition home or self-care (01) ==
LOC: OPBI 10:40
PROVIDERS: PCP Family Medicine; Referring Provider Family Medicine; Visit Provider Family Medicine
DX: Z00.00 Encounter for general adult medical examination without abnormal findings (principal); Z12.31 Encounter for screening mammogram for malignant neoplasm of breast
CPT/HCPCS: 77063; 77067

== ENCOUNTER 2025-01-27 08:04 | Day surgery (SDC) | payer MEDICARE, SELFPAY ==
[2025-01-27] VITALS (9 sets, daily range): BP systolic 87–110; BP diastolic 62–72; PULSE 65–80; RESP 16–17; TEMP 36.1–36.7; O2SAT 92–99
--- NOTE | 2025-01-27 08:14 | PRE.ANES_ITS ---
ASA Classification* ASA Classification ASA Classification: 2 Assessment & Plan Anesthesia* Anesthesia Assessment Anesthesia Assessment: Discussed sedation and/or anesthesia options, risks, benefits, and alternatives with patient/parents/legal guardian/POA. Questions invited. The patient/parents/legal guardian/POA seems to understand and agrees to proceed with anesthesia plan. Reviewed the physical assessment, medical history, allergy history and patient home medications list prior to surgery/procedure/anesthetic and documented any changes. Performed airway and anesthesia risk assessments. Anesthesia Type Anesthesia Type: MAC Anesthesia Focused Assessment* Airway Assessment Mouth opens: >3 cm Mallampati Score: II Focused Labs Anesthesia Preop lab: CBC WBC 4.4 K/mm3 (4.4-11.0) 10/03/18 08:47 10/03/18 RBC 4.76 M/mm3 (4.2-5.4) 10/03/18 08:47 10/03/18 Hgb 13.9 g/dl (12.0-15.0) 10/03/18 08:47 10/03/18 Hct 43.0 % (37-47) 10/03/18 08:47 10/03/18 Plt Count 178 K/mm3 (150-450) 10/03/18 08:47 10/03/18 CHEMISTRY Potassium 3.8 mmol/L (3.5-5.1) 10/06/24 08:10 10/06/24 Sodium 136 mmol/L (136-145) 10/06/24 08:10 10/06/24 BUN 37 mg/dL (7-18) H 10/06/24 08:10 10/06/24 Creatinine 1.33 mg/dL (0.55-1.02) H 10/06/24 08:10 Glucose 108 mg/dL (74-106) H 10/06/24 08:10 10/06/24 COAG Pre-Assessment Diagnosis/Proposed Procedure Planned Operative Procedure(s): EGD, COLONOSCOPY Anesthesia History Anesthesia History - day care supervisor: Anesthesia History - day care supervisor Hx Hospitalization No 01/22/25 08:40 Any Problems With Anesthesia No 01/22/25 08:40 Cholinesterase deficiency No 01/22/25 08:40 You/Your Family Experience No 01/22/25 08:40 fever (hyperthermia) with Relationship Recent Exposure to Contagious No 12/09/23 11:16 Disease Does patient have nerve No 01/22/25 08:40 stimulator Patient instructed to have device shut off --Does patient have Pacemaker or ICD? When Was Last Pacemaker Check QUESTION #4 FULL TEXT: You/Your Family Experience fever (hyperthermia) with Anesthesia Last Oral Intake Last Oral intake: Last Oral Intake NPO since Meds taken in AM with sips of water? Meds patient instructed to take am of surgery PONV PONV - day care supervisor: PONV - day care supervisor Female Yes 01/22/25 08:40 HX of Motion Sickness Yes 01/22/25 08:40 HX of N/V After Surgery Yes 01/22/25 08:40 Non-Smoker Yes 01/22/25 08:40 Duration of Surgery greater No 01/22/25 08:40 than 60 minutes Number of Risk Factors 4 01/22/25 08:40 PONV Score Severe Risk 01/22/25 08:40 Height & Weight Height & Weight: Anesthesia: Height & Weight Height 5 ft 2 in 01/05/25 09:01 Respiratory Assessment Respiratory Assessment - day care supervisor: Respiratory Tract Infection Hx - day care supervisor Hx Respiratory Tract Infection No 01/22/25 08:40 STOP Sleep Apnea STOP Sleep Apnea - day care supervisor: STOP Sleep Apnea - day care supervisor Hx Hypertension Yes 01/22/25 08:40 Hx Sleep Apnea No 01/22/25 08:40 CPAP No 12/09/23 11:16 BIPAP No 12/09/23 11:16 Do you snore loudly (louder No 01/22/25 08:40 than talking or can be heard Do you often feel tired/ No 01/22/25 08:40 fatigued/ sleepy during daytime? Has anyone observed you stop No 01/22/25 08:40 breathing during sleep? STOP Results Negative 01/22/25 08:40 QUESTION #5 FULL TEXT : Do you snore loudly (louder than talking or can be heard through closed doors)? 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 Specify any problems Hx of Preganancy in last 3 No 01/22/25 08:40 Months Nurse Filling Out Transfusion VLEHMEDINA 01/22/25 08:40 & Questions: Date: 01/22/25 01/22/25 08:40 Time: 08:44 01/22/25 08:40 Patient unable to answer at this time (ie. confused, unrespo /Reproduction History /Reproductive History - day care supervisor: /Reproductive Hx- day care supervisor Hx Now No 01/22/25 08:40 Gestational Age (in weeks): EDC: Hx Hx Para Hx Section SAB No 01/22/25 08:40 [facility] Medical History Wears glasses Bladder disease High cholesterol Gastric reflux Non-smoker Cataract Constipation Diarrhea IBS (irritable bowel syndrome) Abdominal pain Hypertension Home Medications ?Medication ?Instructions ?Recorded ?Last Taken ?Type calcium 600 mg (as 1 tab PO DAILY 04/05/14 Unkn own History carbonate)-vitamin D3 20 mcg (800 unit) tablet (Caltrate with Vitamin D3) atorvastatin 20 mg tablet 20 mg PO DAILY 12/09/23 Unkn own History dicyclomine 20 mg tablet 20 mg PO BID 12/09/23 Unknow n History omeprazole 20 mg tablet,delayed 20 mg PO BID PRN 12/09 Unknown History release lisinopril 20 1 tab PO DAILY 01/22/25 Unkn own History mg-hydrochlorothiazide 25 mg tablet Allergy/AdvReac Type Severity Reaction Status Date / Time No Known Allergies Allergy Verified 01/22/25 09:42 Surgical History History of bilateral cataract extraction H/O tubal ligation Social History Smoking Status: Never smoker alcohol intake: never substance use type: does not use Review of Systems (Anesthesia) ROS Narrative System reviewed and no additional complaints, except as documented.
--- NOTE | 2025-01-27 09:04 | HP.PCM_ITS ---
History and Physical Date of Admission: 01/27/25 Date of Service: 01/05/25 MR#: [id number] Acct: [id number] Name: JOSE HARMAN Rep #: [id number] : 1955 Provider: Dr. Veena Cruz MD Age/Sex: 69/F Location: [facility] Status: Signed Intake Vital Signs 12/09/2411:17 01/05/2509:01 Height 5 ft 2 in 5 ft 2 in Weight: 176 lb BMI 32.1 BP 160/90 H Blood Pressure Location Rt brachial Position Sitting Respiration 18 Pulse 72 Pulse Source Monitor Temp 97.5 F L Temp Source Temporal Pulse Oximetry (%) 99 Oxygen Delivery Method room air Intake Visit Reasons: COLONOSCOPY Chief Complaint: colonoscopy Is patient in pain?: No Allergies No Known Allergies Allergy (Verified 01/05/25 09:02) Medications ?Medication ?Instructions ?Recorded ?Confirmed ?Type calcium 600 mg (as 04/05/14 01/05/25 History carbonate)-vitamin D3 20 mcg (800 unit) tablet (Caltrate with Vitamin D3) atorvastatin 20 mg tablet mg PO 12/09/23 01/05/25 History dicyclomine 20 mg tablet mg PO 12/09/23 01/05/25 History metoprolol tartrate 25 mg tablet mg PO 12/09/23 01/05/25 History omeprazole 20 mg tablet,delayed mg PO 12/09/23 01/05/25 History release sodium sul 1.479 gram-potas ch See Rx Instructions PO PER PKG DIR 01/05/25 01/05/25 Rx 0.188 gram-magnes sul 0.225 gram #1 pkg tablet (Sutab) Have you fallen in the past year?: No PFSH Medical History (Updated 01/06/25 @ 12:[address] Veena Cruz MD) Cataract Constipation Diarrhea IBS (irritable bowel syndrome) Abdominal pain Hypertension Surgical History (Updated 01/05/25 @ 09:00 by Raven Mak LPN) H/O tubal ligation Social History (Updated 01/05/25 @ 09:01 by Raven Mak LPN) Smoking Status: Former smoker alcohol intake: never substance use type: does not use HPI HPI HPI: 69-year-old female presents due to positive fit test. Patient had a colonoscopy greater than 10 years ago. Patient does have reflux not on any medication only gets it with certain foods. Patient denies any family history of colon cancer. Patient states she does have IBS and does go between constipation and diarrhea however if she takes her plexus she has bowel movements which are soft and every other day. Patient does have some crampy abdominal pain about 4 out of 7 days of the week. Patient is requesting Sutab for prep. Patient denies any nausea or vomiting/reflux. ROS General General: No weight change, appetite, fatigue, colon cancer, breast cancer or weakness HEENT HEENT: Yes eye surgery; No difficulty swallowing, eye injury, swollen glands or hoarseness Endo Endocrine: No thyroid disease, diabetes mellitus, thyroid cancer, Hair loss, heat intolerance or cold intolerance Skin Skin: No rash or changing moles Musc Musculoskeletal: Yes arthritis; No back problems, rheumatoid arthritis, gout or joint pain Cardio Cardiovascular: Yes high blood pressure; No murmur, pacemaker, heart disease, atrial fibrillation, heart attack, heart stent, palpitations, shortness of breat with exertion or chest pain Psych Psychiatric: No depression, anxiety or hearing voices Resp Respiratory: No shortness of breath, No sleep apnea, No cough, No COPD, No asthma, No emphysema and No wheezing Gastro Gastrointestinal: Yes abdominal pain, No nausea or vomiting, Yes diarrhea, Yes constipation, No blood in stool, No acid reflux, No hemorrhoids, No ulcers, No gallbladder problem and No black,tarry stools [place] Hematologic: No blood thinners, No blood disorders, No bleeding, No anemia and No blood clots Neuro Neurologic: No numbness, No tingling and No weakness Exam Const General: cooperative, healthy appearing, comfortable and no acute distress [facility] Head: normocephalic and atraumatic Neck Neck: supple Resp Effort & Inspection: normal respiratory effort Cardio Rate: regular rate GI Inspection: non-distended Palpation: soft and nontender Skin General: no rashes or lesions noted Neuro General: CN's II-XI intact bilaterally Extrem General: normal to inspection Psych Mental Status: mental status grossly normal Attitude: cooperative Assessment and Plan Assessment and Plan (1) Positive FIT (fecal immunochemical test): Status: Acute Medications: New sod sulf-pot chloride-mag sulf 1.479-0.188- 0.225 gram (Sutab) PO PER PKG DIR 1 pkg 0RF Plan I have discussed the above with the patient. I have offered the patient esophagogastroduodenoscopy and colonoscopy for ev aluation. I have explained the risks/benefits of the procedure and described the procedure. I have discussed the risks with the patient, including but not limited to: infection, bleeding, perforation of the GI tract requiring emergency surgery, inability to complete the procedure, injury to any internal organs, complications of anesthesia, etc. - the patient understands and agrees to proceed. I have answered all the patient's questions to the patient's satisfaction and the patient has no further questions. The patient has been given instructions for the colon cleansing preparation. 1 day of kenn, Cherylab prep. Veena Cruz M.D. Pager: [phone] [facility] [address] [place] [address], [address] [place] [id number] Office: [phone] Coding Level of Care Code Off vis,new,level 3 Diagnoses Positive FIT (fecal immunochemical test) R19.5 Clinical Quality Measures Falls Risk Screening/Assistive Devices Have you fallen in the past year?: No 01/06/25 1302 <Electronically signed by Venea Cruz MD> Date Veena Cruz MD
--- NOTE | 2025-01-27 09:30 | EGD_PTH ---
PATIENT: JOSE HARMAN LOC: EN U#:[id number] AGE/SX: 69/F ROOM: RE01/27/[address]: Dr. Veena Cruz MD : 1955 BED: DIS: 01/27/2025 SPEC #: [id number] RECD: 01/27/25 13:23 STATUS: MJ RENona #: [id number] NIVIA: 01/27/25 09:[address]: Veena Cruz DEPT: SURGICAL PATHOLOGY RECD BY: Yao Martin ENTERED: 01/27/25 13:23 SP TYPE: EGD BIOPSY KENNETH DR: Dr. Vivek Deras MD Tissues: A - COLON BIOPSY Procedures: Immunohistochemical Stains Surgery Specimen Level IV HEADER OPERATION: Colonoscopy, EGD with biopsy PRE-OP DIAGNOSIS: Positive fecal immunochemical test TISSUE SUBMITTED: A- Pre-pylorus biopsy MICROSCOPIC DIAGNOSIS A. STOMACH, PRE-PYLORUS, BIOPSY: - CHRONIC GASTRITIS. - IHC NEGATIVE FOR H PYLORI ORGANISMS. MICROSCOPIC DESCRIPTION Slides are reviewed. These tests were developed and their performance characteristics determined by [facility]. They may not have been cleared or approved by the U.S. Food and Drug Administration. The FDA has determined that such clearance or approval is not necessary. The above immunohistochemical/dualISH markers are ordered and reviewed by the Pathologist. GROSS DESCRIPTION A. Received in fixative is one container labeled with the patient's name and designated Pre-pylorus biopsy. The specimen consists of one irregular fragment of light umaña soft tissue that measures 0.7 x 0.3 x 0.2 cm. The specimen is totally submitted in one cassette. 01/27/2025 CPT:31193,77613
--- NOTE | 2025-01-27 10:20 | PCM.POST.ANE ---
Anesthesia: Postop Eval I Current Vital Signs Temperature: 97 F Pulse Rate: 77 Blood Pressure: 91/65 Respiratory Rate: 17 Pulse Ox: 98 Oxygen Delivery Method: Room Air Assessment Airway patent: Yes Spontaneous unlabored respirations: Yes Mental status: Asleep nausea: No Vomiting: No Anesthesia Complication: No Fluid Hydration Crystalloid volume administer (ml): 60 Total IV fluid infused: 60 Progress Note Anesthesia document: Postop Eval 1 completed: Yes
--- NOTE | 2025-01-27 10:27 | OP.CCLET_ITS ---
01/27/2025 Vivek Deras MD [address] [phone] Re : Upper GI endoscopy procedure for Yeny Spangler Dear Dr. Deras This procedure was performed on Monday, January 27, 2025. My impressions and recommendations are as follows: Impressions : - Z-line regular, 35 cm from the incisors. - Small hiatal hernia. - Erythematous mucosa in the prepyloric region of the stomach. Biopsied. 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 - No gross lesions in the entire esophagus. Recommendations : - Await pathology results. - Return to my office in 2 weeks. - Continue present medications. My findings are described in the full procedure note, which is enclosed. If I can be of further assistance, please feel free to contact me at Doctor phone number(s): , Work: . Sincerely, MD Veena Ramachandran MD 01/27/2025 10:27:27 AM This report has been signed electronically.
--- NOTE | 2025-01-27 10:27 | OP.EGD_ITS ---
Patient Name: Yeny Spangler Procedure Date: 01/27/2025 9:42 AM Date of : 1955 Age: 69 Procedure: Upper GI endoscopy Indications: +FIT Providers: Veena Cruz MD Referring MD: Vivek Deras MD Medicines: Monitored Anesthesia Care Patient Profile: This is a 69 year old female. Complications: No immediate complications. Procedure: Pre-Anesthesia Assessment: - Prior to the procedure, a History and Physical was performed, and patient medications and allergies were reviewed. The patient's tolerance of previous anesthesia was also reviewed. The risks and benefits of the procedure and the sedation options and risks were discussed with the patient. All questions were answered, and informed consent was obtained. Prior Anticoagulants: The patient has taken no anticoagulant or antiplatelet agents. ASA Grade Assessment: Per anesthesia. After reviewing the risks and benefits, the patient was deemed in satisfactory condition to undergo the procedure. After obtaining informed consent, the endoscope was passed under direct vision. Throughout the procedure, the patient's blood pressure, pulse, and oxygen saturations were monitored continuously. The Colonoscope was introduced through the mouth, and advanced to the duodenal bulb. The upper GI endoscopy was accomplished without difficulty. The patient tolerated the procedure well. Scope In: 9:49:35 AM Scope Out: 9:55:02 AM Total Procedure Duration Time 0 hours 5 minutes 27 seconds Findings: The Z-line was regular and was found 35 cm from the incisors. A small hiatal hernia was present. Moderately erythematous mucosa without bleeding was found in the prepyloric region of the stomach. Biopsies were taken with a cold forceps for histology. Biopsies were taken with a cold forceps for Helicobacter pylori cultures. A [Acquired/Congenital] moderate stenosis was found in the first portion of the duodenum and was non-traversed. No gross lesions were noted in the entire esophagus. Impression: - Z-line regular, 35 cm from the incisors. - Small hiatal hernia. - Erythematous mucosa in the prepyloric region of the stomach. Biopsied. 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 - No gross lesions in the entire esophagus. Recommendation: - Await pathology results. - Return to my office in 2 weeks. - Continue present medications. Procedure Code(s): --- Professional --- 98309, Esophagogastroduodenoscopy, flexible, transoral; with biopsy, single or multiple Diagnosis Code(s): --- Professional --- K44.9, Diaphragmatic hernia without obstruction or gangrene K31.89, Other diseases of stomach and duodenum CPT copyright 2021 [employer] [place] [employer]. All rights reserved. The codes documented in this report are preliminary and upon tobacco drying machine operator review may be revised to meet current compliance requirements. MD Veena Ramachandran MD 01/27/2025 10:27:27 AM This report has been signed electronically. Number of Addenda: 0 Note Initiated On: 01/27/2025 9:42 AM
--- NOTE | 2025-01-27 10:31 | OP.CCLET_ITS ---
01/27/2025 Vivek Deras MD [address] [phone] Re : Colonoscopy procedure for Yeny Spangler Dear Dr. Deras This procedure was performed on Monday, January 27, 2025. My impressions and recommendations are as follows: Impressions : - The entire examined colon is normal on direct and retroflexion views. - No specimens collected. Recommendations : - Discharge patient to home. - Resume previous diet. - Continue present medications. - Repeat colonoscopy in 10 years for screening purposes. - depending on overall health at time of possible repeat My findings are described in the full procedure note, which is enclosed. If I can be of further assistance, please feel free to contact me at Doctor phone number(s): , Work: . Sincerely, MD Veena Ramachandran MD 01/27/2025 10:30:59 AM This report has been signed electronically.
--- NOTE | 2025-01-27 10:31 | OP.COLON_ITS ---
Patient Name: Yeny Spangler Procedure Date: 01/27/2025 9:55 AM Date of : 1955 Age: 69 Procedure: Colonoscopy Indications: Positive fecal immunochemical test Providers: Veena Cruz MD Referring MD: Vivek Deras MD Medicines: Monitored Anesthesia Care Patient Profile: This is a 69 year old female. Last Colonoscopy: more than 10 years ago. Complications: No immediate complications. Procedure: Pre-Anesthesia Assessment: - Prior to the procedure, a History and Physical was performed, and patient medications and allergies were reviewed. The patient's tolerance of previous anesthesia was also reviewed. The risks and benefits of the procedure and the sedation options and risks were discussed with the patient. All questions were answered, and informed consent was obtained. Prior Anticoagulants: The patient has taken no anticoagulant or antiplatelet agents. ASA Grade Assessment: Per anesthesia. After reviewing the risks and benefits, the patient was deemed in satisfactory condition to undergo the procedure. After I obtained informed consent, the scope was passed under direct vision. Throughout the procedure, the patient's blood pressure, pulse, and oxygen saturations were monitored continuously. The Colonoscope was introduced through the anus and advanced to the cecum, identified by the appendiceal orifice, ileocecal valve and palpation. The colonoscopy was performed without difficulty. The patient tolerated the procedure well. The quality of the bowel preparation was good. Scope In: 9:56:29 AM Scope Withdrawal Time 0 hours 9 minutes 15 seconds Scope Out: 10:12:13 AM Total Procedure Duration Time 0 hours 15 minutes 44 seconds Findings: The perianal and digital rectal examinations were normal. The entire examined colon appeared normal on direct and retroflexion views. Impression: - The entire examined colon is normal on direct and retroflexion views. - No specimens collected. Recommendation: - Discharge patient to home. - Resume previous diet. - Continue present medications. - Repeat colonoscopy in 10 years for screening purposes. - depending on overall health at time of possible repeat Procedure Code(s): --- Professional --- 44125, Colonoscopy, flexible; diagnostic, including collection of specimen(s) by brushing or washing, when performed (separate procedure) Diagnosis Code(s): --- Professional --- R19.5, Other fecal abnormalities CPT copyright 2021 [employer]. All rights reserved. The codes documented in this report are preliminary and upon federal court of appeals law clerk review may be revised to meet current compliance requirements. MD Veena Ramachandran MD 01/27/2025 10:30:59 AM This report has been signed electronically. Number of Addenda: 0 Note Initiated On: 01/27/2025 9:55 AM
--- NOTE | 2025-01-27 10:34 | PCM.POSTANE2 ---
Anesthesia Postop Eval I Sum Postop Eval Completion status Anesthesia document: Postop Eval 1 completed: Yes Anesthesia Postop Eval I Summary Anesthesia Postop Eval I Summary: Anesthesia Postop Eval I: Assessment Summary Airway patent Yes 01/27/25 10:21 [email or web address] Spontaneous unlabored Yes 01/27/25 10:21 [email or web address] respirations Mental status Asleep 01/27/25 10:21 [email or web address] nausea No 01/27/25 10:21 [email or web address] Vomiting No 01/27/25 10:21 [email or web address] Anesthesia Postop Eval I: Fluid Summary Crystalloid volume administer 60 01/27/25 10:21 [email or web address] (ml) Colloids volume administered ( ml) Blood Product volume administered (ml) Total IV fluid infused 60 01/27/25 10:21 [email or web address] Anesthesia Postop Eval I: Summary Notes Anesthesia Complication No 01/27/25 10:21 [email or web address] Anesthesia Complication Comment: Post-operative progress note Anesthesia: Postop Eval II Evaluation Mental status: Awake Pain Level: 0 nausea: No Vomiting: No
== END 2025-01-27 11:15 | disposition home or self-care (01) ==
LOC: EN 08:04 → AC 08:20
PROVIDERS: PCP Family Medicine; Referring Provider Family Medicine; Visit Provider Surgery
PROC: 0DJD8ZZ Inspection of Lower Intestinal Tract, Via Natural or Artificial Opening Endoscopic (ICD-10-PCS; CPT 45378; principal; 2025-01-27 09:25)
DX: K29.50 Unspecified chronic gastritis without bleeding (principal); K44.9 Diaphragmatic hernia without obstruction or gangrene; I10 Essential (primary) hypertension; K31.5 Obstruction of duodenum; Z87.891 Personal history of nicotine dependence; R19.5 Other fecal abnormalities; K21.9 Gastro-esophageal reflux disease without esophagitis; E78.00 Pure hypercholesterolemia, unspecified
CPT/HCPCS: 43239; 45378; 88305; 88342; A4216; J2405

== ENCOUNTER → 2025-03-10 | Outpatient (CLI) | payer MEDICARE, SELFPAY ==
--- NOTE | 2025-03-10 06:36 | CT_ITS ---
PROCEDURE: ABDOMEN/PELVIS WITH CONTRAST 03/10/2025 REASON FOR EXAM: DUODENAL STRICTURE TECHNIQUE: Abdomen and pelvis CT with intravenous contrast. Coronal and Sagittal reconstruction series were provided. PATIENT PREPARATION: Per protocol ORAL CONTRAST TYPE: Gastrografin CONTRAST: 75 cc Isovue 370 IV One or more dose reduction techniques were used (e.g., Automated exposure control, adjustment of the mA and/or kV according to patient size, use of iterative reconstruction technique. RADIATION DOSE SUMMARY: CTDlvol: 19.95 mGy DLP: 1004.14 mGycm COMPARISON: None available FINDINGS: The lung bases are clear. Sequela of previous granulomatous disease with liver and splenic calcifications. The liver, gallbladder, adrenal glands, kidneys, pancreas and spleen appear within limits. 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 Abdominal aorta appears within limits. No adenopathy. No bowel dilation or free air. Oral contrast is seen to the hepatic flexure. The overall size and caliber of the 2nd portion of the duodenum for example axial 38 and coronal 57 appears small and there may be some associated fatty change within the wall. There is no dynamic evaluation of the bowel at this level. No upstream dilation of the proximal duodenum and stomach. Normal caliber appendix without secondary signs. No colonic wall thickening or pericolonic inflammatory change. Moderate proximal colonic stool. The ovaries, uterus and bladder appear within limits. No free fluid. Multilevel spondylosis/discogenic change CT/Abdomen/Pelvis WITH Contrast IMPRESSION: Oral contrast is seen to the hepatic flexure. The overall size and caliber of t he 2nd portion of the duodenum for example axial 38 and coronal 57 appears small and there may be some associated fatty change w ithin the wall. There is no dynamic evaluation of the bowel at this level. No upstream dilation of the proximal duodenum and stom ach. Moderate proximal colonic stool. Reading Location: [id number]
== END | disposition home or self-care (01) ==
LOC: CT 06:35
PROVIDERS: PCP Family Medicine
DX: K31.5 Obstruction of duodenum (principal)
CPT/HCPCS: 74177; Q9967

== ENCOUNTER → 2025-05-14 | Outpatient (CLI) | payer MEDICARE, SELFPAY ==
[2025-05-14 15:19] LABS: Hematocrit 42.8 % (37-47); Hemoglobin 14.1 g/dL (12.0-15.0); Immature Granulocytes Count 0.020 X10^3/uL (0.0-0.0); Mean Corp Hgb Conc 32.9 g/dL (32-36); Mean Corpuscular Volume 91.6 fL (81-99); Mean Platelet Vol. 12.1 fl (6.2-12.0); NRBC Flagged by Analyzer 0 % (0-5); Platelet Count 225 K/mm3 (150-450); RBC Distribution Width CV 12.3 % (11.6-14.6); RBC Distribution Width SD 41.2 fl (35.1-43.9); Red Blood Count 4.67 M/mm3 (4.2-5.4); White Blood Count 5.9 K/mm3 (4.4-11.0)
[2025-05-14 16:01] LABS: Anion Gap 13 (5-15); BUN 31 mg/dL (4-19); BUN/Creat Ratio 26.3 RATIO (10-20); Calcium,Total 9.8 mg/dL (7.6-11.0); Carbon Dioxide 25.4 mmol/L (21.0-32.0); Chloride 99 mmol/L (98-108); Glucose 96 mg/dL (70-99); Magnesium 2.6 mg/dL (1.5-2.2); Potassium 3.9 mmol/L (3.3-5.1)
== END | disposition home or self-care (01) ==
LOC: MFPLAB 11:40
PROVIDERS: PCP Family Medicine; Referring Provider Family Medicine; Visit Provider Family Medicine
DX: R42 Dizziness and giddiness (principal)
CPT/HCPCS: 36415; 80048; 83735; 85025

== ENCOUNTER → 2025-06-10 | Outpatient (CLI) | payer MEDICARE, SELFPAY ==
[2025-06-10 17:32] LABS: CRP 3.01 mg/L (0.0-3.0)
[2025-06-10 17:42] LABS: AST(SGOT) 26 U/L (<=31); Alanine Aminotransfer ALT/SGPT 22 U/L (<=34); Albumin, Serum 4.6 g/dL (3.4-4.8); Alkaline Phosphatase 92 U/L (35-104); Anion Gap 16 (5-15); BUN 26 mg/dL (4-19); BUN/Creat Ratio 20.5 RATIO (10-20); Calcium,Total 9.9 mg/dL (7.6-11.0); Carbon Dioxide 23.2 mmol/L (21.0-32.0); Chloride 100 mmol/L (98-108); Globulin 3.0 g/dL (2.2-4.2); Glucose 96 mg/dL (70-99); Potassium 3.9 mmol/L (3.3-5.1)
== END | disposition home or self-care (01) ==
LOC: LAB 16:09
PROVIDERS: PCP Family Medicine; Referring Provider Internal Medicine Gastroenterology; Visit Provider Internal Medicine Gastroenterology
DX: K31.5 Obstruction of duodenum (principal); K29.70 Gastritis, unspecified, without bleeding; K58.9 Irritable bowel syndrome, unspecified; R10.9 Unspecified abdominal pain; E03.9 Hypothyroidism, unspecified
CPT/HCPCS: 36415; 80053; 82784; 82941; 83516; 84165; 84443; 85652; 86003; 86005; 86037; 86140; 86255; 86334